=== PATIENT | male | born 1990 | race Caucasian/White ===

== ENCOUNTER 2024-03-11 15:20 | Emergency (ER) | payer BC, SELFPAY ==
[2024-03-11 15:35] VITALS: BP 135/101
--- NOTE | 2024-03-11 15:37 | ED.GENMED ---
ED Provider Triage
<Ovidio Bowman PA-C - Last Filed: 03/11/24 15:39>
-
Patient seen by provider in Triage?: Seen in Triage
Attestation: A medical screening examination has been initiated by a qualified medical provider. Based on the assessment performed at this time, it has been determined that an emergent medical condition may exist and the patient has been informed
that further medical evaluation and possible additional diagnostic testing may be needed.
HPI: 33-year-old male presenting the ER for evaluation of upper abdominal pain, diarrhea and generally feeling unwell. Also notes associated paresthesias to his bilateral hands and shakiness. Had COVID earlier in the month as well as influenza A.
Both his children had both flu A and B. They were still symptomatic as of this past Monday, started to feel better this . Patient without any fevers. Feels nauseous currently but no vomiting. Family history for cardiac disease on both
sides. Patient brought in for quick EKG, labs ordered. Patient otherwise stable
GENERAL: Alert , in no apparent distress
EYE: No visual abnormalities.
NECK: Trachea midline
ENT: No visible abnormalities.
LUNGS: No acute respiratory distress
NEUROLOGICAL: Alert and oriented
SKIN: Skin intact. No visible changes.
MUSCULOSKELETAL: Moving extremities normally
PSYCH: Normal and appropriate interaction.
This is a medical evaluation conducted in person to initiate diagnostic evaluation and provide initial therapeutics. Please see further documentation by the treating clinician.
History of Present Illness
<Ovidio Bowman PA-C - Last Filed: 03/11/24 15:39>
General
Chief Complaint: Abdominal Pain
Time Seen by Provider: 03/11/24 18:11
<Eve Pimentel PA-C - Last Filed: 03/12/24 01:30>
General
Source: patient
Exam Limitations: none
Nursing documentation reviewed up to this point in time: agreed with
History of Present Illness
History of Present Illness:
Patient is a 33 year male presenting to the emergency department with upper abdominal pain associated with nausea and diarrhea. Patient reports initially noticing upper abdominal discomfort yesterday evening before bed although much worse today.
Patient describes a pain in his upper abdomen and somewhat throughout his lower abdomen, as well. He has had relatively constant nausea although no vomiting. He does endorse multiple episodes of diarrhea throughout the day as well. Patient denies
any associated chest pain or shortness of breath. No known fevers although he does feel chilly. Patient denies any associated cough, sore throat, other upper respiratory symptoms.
No known sick contacts. He did have chili for dinner last night at his parents house.
No history of abdominal surgeries.
Review of Systems
<Eve Pimentel PA-C - Last Filed: 03/12/24 01:30>
Review of Systems
Allergies reviewed?: Yes
All Other Systems: ROS reviewed and negative except as documented in HPI and ROS
Phy Exam
<Eve Pimentel PA-C - Last Filed: 03/12/24 01:30>
Physical Exam
Physical Exam:
Vitals: Hypertensive, otherwise stable vital signs. Afebrile
General: Patient is in no apparent distress.
Skin: Warm and dry, no rashes or lesions
Head: Normocephalic, atraumatic
Eyes: Sclera nonicteric. EOMs intact. No nystagmus.
Throat: Protecting airway
Neck: Normal ROM, no cervical spine tenderness, no meningismus
Cardiac: Regular rate and rhythm, no murmurs.
Pulm: Normal respiratory effort, no wheezes, rales, rhonchi heard on exam.
Abdomen: Abdomen soft. Mild diffuse abdominal tenderness. No rebound tenderness or guarding. No rash
Extremities: No evidence of cyanosis or edema. Palpable distal pulses but
Neuro: AAOx3. Grossly intact.
Psychiatric: Normal affect.
Course
<Ovidio Bowman PA-C - Last Filed: 03/11/24 15:39>
Orders/Labs/Results
Orders:
Orders
03/11/24 15:36
Electrocardiogram (*1) Urgent
Reason for Study: Abdominal Pain
EKG- Treatment ONCE
03/11/24 15:47
COVID-19 Antigen Urgent
Source: Nasal Swab
Complete Blood Count/With Diff Urgent
Comprehensive Metabolic Panel Urgent
Lipase Urgent
Troponin I Urgent
Influenza A+B Rapid Molecular Urgent
[place] Source: Nasal Swab
Specimen Description:
03/11/24 18:29
0.9% Sodium Chloride 1000 ml [Nss] 1,000 ml IV BOLUS
Famotidine [Pepcid] 20 mg IV NOW STA
Ketorolac [Toradol] 15 mg IV NOW STA
Ondansetron Injectable [Zofran] 4 mg IV NOW STA
03/11/24 18:55
US Abdomen Complete/Upper Urgent
Comment:
Reason For Exam: Upper abdominal pain, +nausea
03/11/24 20:48
CT Abd/pelvis W Iv Cont Urgent
Comment:
Reason For Exam: Lower abdominal pain, +nausea, +diarrhea
Abnormal Lab Results
03/11/24
15:47
Absolute Neuts (auto) 9.0 H 10^3/uL
(1.4-6.5)
Absolute Lymphs (auto) 0.4 L 10^3/uL
(1.2-3.4)
Neutrophils % 92.4 H %
(42.2-75.2)
Lymphocytes % 3.6 L %
(20.5-51.1)
Glucose 120 H mg/dl
(70-99)
03/11/24 15:47
03/11/24 15:47
Vital Signs
Initial and Last Documented VS:
Initial Vital Signs
Temp Pulse Resp BP Pulse Ox
99.1 F 98 20 135/101 100
03/11/24 15:35 03/11/24 15:35 03/11/24 15:35 03/11/24 15:35 03/11/24 15:35
Last Documented Vital Signs
Temp Pulse Resp BP Pulse Ox
99.1 F 85 16 143/87 98
03/11/24 15:35 03/11/24 22:49 03/11/24 22:49 03/11/24 22:49 03/11/24 22:49
<Eve Pimentel PA-C - Last Filed: 03/12/24 01:30>
Orders/Labs/Results
Orders:
Orders
03/11/24 15:36
Electrocardiogram (*1) Urgent
Reason for Study: Abdominal Pain
EKG- Treatment ONCE
03/11/24 15:47
COVID-19 Antigen Urgent
Source: Nasal Swab
Complete Blood Count/With Diff Urgent
Comprehensive Metabolic Panel Urgent
Lipase Urgent
Troponin I Urgent
Influenza A+B Rapid Molecular Urgent
[place] Source: Nasal Swab
Specimen Description:
03/11/24 18:29
0.9% Sodium Chloride 1000 ml [Nss] 1,000 ml IV BOLUS
Famotidine [Pepcid] 20 mg IV NOW STA
Ketorolac [Toradol] 15 mg IV NOW STA
Ondansetron Injectable [Zofran] 4 mg IV NOW STA
03/11/24 18:55
US Abdomen Complete/Upper Urgent
Comment:
Reason For Exam: Upper abdominal pain, +nausea
03/11/24 20:48
CT Abd/pelvis W Iv Cont Urgent
Comment:
Reason For Exam: Lower abdominal pain, +nausea, +diarrhea
Abnormal Lab Results
03/11/24
15:47
Absolute Neuts (auto) 9.0 H 10^3/uL
(1.4-6.5)
Absolute Lymphs (auto) 0.4 L 10^3/uL
(1.2-3.4)
Neutrophils % 92.4 H %
(42.2-75.2)
Lymphocytes % 3.6 L %
(20.5-51.1)
Glucose 120 H mg/dl
(70-99)
03/11/24 15:47
03/11/24 15:47
Vital Signs
Initial and Last Documented VS:
Initial Vital Signs
Temp Pulse Resp BP Pulse Ox
99.1 F 98 20 135/101 100
03/11/24 15:35 03/11/24 15:35 03/11/24 15:35 03/11/24 15:35 03/11/24 15:35
Last Documented Vital Signs
Temp Pulse Resp BP Pulse Ox
99.1 F 85 16 143/87 98
03/11/24 15:35 03/11/24 22:49 03/11/24 22:49 03/11/24 22:49 03/11/24 22:49
<Rai Ricci MD - Last Filed: 03/11/24 18:58>
Orders/Labs/Results
Orders:
Orders
03/11/24 15:36
Electrocardiogram (*1) Urgent
Reason for Study: Abdominal Pain
EKG- Treatment ONCE
03/11/24 15:47
COVID-19 Antigen Urgent
Source: Nasal Swab
Complete Blood Count/With Diff Urgent
Comprehensive Metabolic Panel Urgent
Lipase Urgent
Troponin I Urgent
Influenza A+B Rapid Molecular Urgent
[place] Source: Nasal Swab
Specimen Description:
03/11/24 18:29
0.9% Sodium Chloride 1000 ml [Nss] 1,000 ml IV BOLUS
Famotidine [Pepcid] 20 mg IV NOW STA
Ketorolac [Toradol] 15 mg IV NOW STA
Ondansetron Injectable [Zofran] 4 mg IV NOW STA
03/11/24 18:55
US Abdomen Complete/Upper Urgent
Comment:
Reason For Exam: Upper abdominal pain, +nausea
03/11/24 20:48
CT Abd/pelvis W Iv Cont Urgent
Comment:
Reason For Exam: Lower abdominal pain, +nausea, +diarrhea
Abnormal Lab Results
03/11/24
15:47
Absolute Neuts (auto) 9.0 H 10^3/uL
(1.4-6.5)
Absolute Lymphs (auto) 0.4 L 10^3/uL
(1.2-3.4)
Neutrophils % 92.4 H %
(42.2-75.2)
Lymphocytes % 3.6 L %
(20.5-51.1)
Glucose 120 H mg/dl
(70-99)
03/11/24 15:47
03/11/24 15:47
Vital Signs
Initial and Last Documented VS:
Initial Vital Signs
Temp Pulse Resp BP Pulse Ox
99.1 F 98 20 135/101 100
03/11/24 15:35 03/11/24 15:35 03/11/24 15:35 03/11/24 15:35 03/11/24 15:35
Last Documented Vital Signs
Temp Pulse Resp BP Pulse Ox
99.1 F 85 16 143/87 98
03/11/24 15:35 03/11/24 22:49 03/11/24 22:49 03/11/24 22:49 03/11/24 22:49
<Eve Pimentel PA-C - Last Filed: 03/12/24 01:30>
MDM/Problems Addressed
Differential Diagnosis Includes:
Not limited to: Viral gastroenteritis, cholecystitis, biliary colic, pancreatitis, appendicitis, diverticulitis,
MDM/Problems Addressed:
32-year-old male presenting with upper abdominal pain associated with nausea and diarrhea. No fevers, chest pain, or shortness of breath. Symptoms with initial onset this morning and constant. Hypertensive, otherwise stable vital signs. He is
afebrile. Physical exam as above. Patient in no apparent distress. Abdomen is soft with somewhat mild diffuse tenderness that rebound tenderness or guarding. Cardio/pulmonary assessment unremarkable. Patient perfusing well. Basic labs
initiated in triage without any clinically significant abnormalities. Viral swabs negative. EKG without acute ischemic changes. Troponin undetectable. Ultimately�suspect likely viral gastroenteritis. Although will check abdominal ultrasound to
rule out gallstones/cholecystitis. Will treat symptoms with PPI, Zofran, Toradol, fluids and reassess
Update: Ultrasound report reviewed. No evidence of gallstones or cholecystitis. On reassessment�patient does have some improvement in symptoms although remains mildly tender in lower abdomen. Shared decision making regarding discharge home with
close monitoring of symptoms for CT scan to rule out other acute intra-abdominal pathology. Radiation risk discussed. Patient however not comfortable with discharge home prior to CT. Will obtain CT scan abdomen/pelvis.
Update: CT report abdomen/pelvis reviewed. No evidence of appendicitis. No other acute abnormalities. Overall�suspect likely viral gastroenteritis. Patient stable for discharge home with p.o. fluids, Zofran, primary care follow-up. Close return
precautions discussed. Patient was made aware of polyps seen on gallbladder and will follow with primary care
Chronic conditions affecting care:
N/A
Acute Exacerbation and/or Progression of Chronic Illness:
N/A
<Eve Pimentel PA-C - Last Filed: 03/12/24 01:30>
*Radiology
Radiology exam reviewed: radiology read reviewed
*Pulse Oximetry
Patient hypoxic: no
*EKG
Interpreted by ED Provider?: Yes
EKG Intrepretation Date: 03/11/24
Interpretation: normal
Comparison EKG: no changes
Heart Rate: 94
Rate: normal
Rhythm: sinus
[place]: normal axis
Interval: normal interval
QRS Pattern: normal QRS
Ischemia: no ischemia
*Manager Auto Interpretation
Rate: Manager Auto- N/A
*Critical Care Note
Total Time (30-74mins, 75-104mins- exclusive of procedures): Not Applicable
ED Attending Note
<Ovidio Bowman PA-C - Last Filed: 03/11/24 15:39>
-
Portions of this chart may have been created with voice recognition software.� Occasional wrong word or��sound alike� substitutions may have occurred due to the inherent limitations of voice recognition software.
<Rai Ricci MD - Last Filed: 03/11/24 18:58>
ED Attending Note
Patient seen and examined by attending physician: Yes
ED Attending Note:
I have seen and evaluated the patient with a [id number]-fo-sfee encounter. I have spoken to the advance practicer provider and involved in the medical history, the physical exam, medical decision making.
Evaluation and management service: agree unless noted differently below.
Results interpretation: agree unless noted differently below.
Focused HPI: 33-year-old male with no reported chronic medical issues presents to the emergency room for evaluation of abdominal pain with nausea/vomiting and diarrhea. Patient reports symptoms started this morning and have been constant since that
time although he did have some transient mild symptoms last night after eating some chili. He reports pain mainly in the epigastrium. Associated with nausea and a few episodes of nonbloody vomiting. He also reports multiple episodes of loose
watery stool. He denies any objective fever although he says he has had some chills this morning. He denies any cough, sore throat, URI symptoms. He denies any other complaints. He denies any prior surgical history.
Physical exam: Awake alert not in distress. Vital signs normal on my assessment. His abdomen is soft, mildly tender in the epigastrium and right upper quadrant with no peritoneal signs and no palpable abdominal masses. His mucous membranes appear
generally moist.
Medical Decision Makin-year-old male presents for evaluation of upper abdominal pain associate with nausea, vomiting, diarrhea. Vitals and exam as above. Suspect likely viral gastroenteritis although symptoms did come after eating some chili
last night�hepatobiliary pathology also consideration. Check CBC, CMP, lipase. Will check swabs for COVID and flu. Check upper abdominal ultrasound. Treat symptomatically and reassess after the above.
Discharge Plan
Departure
Patient Disposition: Home (Routine Discharge)
Date of Disposition: 03/11/24
Time of Disposition: 22:49
Patient with high blood pressure during this ER visit?: Yes
Condition: Good
Covid-19: Not Applicable
Discharge Problem:
Nausea, vomiting and diarrhea, Abdominal pain
Instructions: Viral gastroenteritis in adults, Abdominal Pain, BLOOD PRESSURE
Prescriptions:
New
ondansetron 4 mg tablet,disintegrating
4 mg PO Q8H PRN (Reason: nausea and vomiting) Qty: 7 0RF
Referrals:
Hadley Ochoa DO [Family Provider] -
Activity Restrictions/Additional Instructions:
Return to the emergency department with any persistent fevers, intractable nausea/vomiting, severe abdominal pain, persistent loss of appetite, signs of severe dehydration, chest pain/shortness of breath, worsening in current symptoms, or any other
concerns
-As discussed that your ultrasound of your abdomen did show a few gallbladder polyps. These likely will not require any further follow-up imaging although please bring this to your primary care provider's attention.
-Prescription for Zofran has been sent to your pharmacy. You can take this up to every 8 hours as needed for persistent nausea/vomiting. You can try OTC pantoprazole/omeprazole for the next few weeks to improve symptoms.
-Is important stay well-hydrated. I recommend a bland diet and slowly advance as tolerated.
-Follow-up with your primary care as needed for further evaluation/management and to ensure that symptoms are improved
Monitor your symptoms closely return to the emergency department any acute worsening/new symptoms or any other concerns
Interventions
Interventions:
*Risk Screen - Suicide Last Done: 03/11/24 15:35
*General Assessment Last Done: 03/11/24 18:28
*Neglect/Abuse Screening Last Done: 03/11/24 18:29
ED- Fall Risk Assessment Last Done: 03/11/24 18:31
*ED COVID-19 Vaccine History Last Done: 03/11/24 18:28
*Nursing Disposition Last Done: 03/11/24 22:53
II-Ibeejy-Pogtvpgvtb Assessment Last Done: 03/11/24 18:31
Discharge Date and Time
Discharge Date/Time: 03/11/24 22:59
Print Language: CROATIAN
[2024-03-11 15:57] LABS: % Basophils 0.2 % (0-2); % Eosinophils 0.7 % (0-6); % Immature Granulocytes 0.2 % (0-0.5); % Lymphocytes 3.6 % (20.5-51.1); % Monocytes 2.9 % (1.7-9.3); % Neutrophils 92.4 % (42.2-75.2); Absolute Eosinophils 0.1 10^3/uL (0-0.7); Absolute Lymphocytes 0.4 10^3/uL (1.2-3.4); Absolute Monocytes 0.3 10^3/uL (0.1-0.6); Hematocrit 43.5 % (39.0-52.0); Hemoglobin 15.5 g/dL (13.0-18.0); Mean Corp Hgb Conc. 35.6 g/dL (33.0-37.0); Mean Corpuscular Hgb 30.1 pg (27.0-31.0); Mean Corpuscular Volume 84.5 fL (80.0-94.0); Mean Platelet Volume 9.7 fL (7.4-10.4); Nucleated Red Blood Cells % 0 % (-); Platelet Count 327 10^3/uL (130-400); Red Blood Cell Count 5.15 10^6/uL (4.70-6.10); Red Cell Dist. Width 12.6 % (11.5-14.5); White Blood Cell Count 9.7 10^3/uL (4.8-10.8)
[2024-03-11 16:12] LABS: ALT (SGPT) 28 U/L (0-50); AST (SGOT) 24 U/L (17-59); Albumin 4.7 g/dl (3.5-5.0); Alkaline Phosphatase 89 U/L (38-126); Blood Urea Nitrogen 16 mg/dl (9-20); Calcium 9.5 mg/dl (8.4-10.2); Carbon Dioxide 23 mmol/L (22-30); Chloride 103 mmol/L (98-107); Glucose 120 mg/dl (70-99); Lipase 79 U/L (23-300); Potassium 3.7 mmol/L (3.5-5.1); Sodium 137 mmol/L (135-145); Total Bilirubin 1.1 mg/dl (0.2-1.3); Total Protein 6.9 g/dl (6.3-8.2); eGFR > 60.00
[2024-03-11 16:17] LABS: COVID-19 Antigen Negative (Negative)
[2024-03-11 16:21] LABS: Troponin I < 0.012 ng/ml
[2024-03-11 18:28] VITALS: BMI 26.5
[2024-03-11 18:34] VITALS: BP 145/96
--- NOTE | 2024-03-11 18:40 | EDRN ---
Michelle BREAUX in room w/ pt.
[2024-03-11] MEDS: NSS 1000 IV (18:46)
--- NOTE | 2024-03-11 18:52 | EDRN ---
Dr. Ricci in room w /pt.
[2024-03-11] MEDS: PEPCID 20 MG IV (18:53)
[2024-03-11] MEDS: ZOFRAN 4 MG IV (18:53)
[2024-03-11] MEDS: TORADOL 15 MG IV (18:53)
[2024-03-11 20:32] VITALS: BP 147/89
[2024-03-11 22:49] VITALS: BP 143/87
== END 2024-03-11 22:59 | disposition home or self-care (01) ==
LOC: EMR 15:20
PROVIDERS: Physician Assistant Medical; EMERGENCY PHYSICIAN Emergency Medicine; FAMILY PHYSICIAN Internal Medicine
DX: R11.2 Nausea with vomiting, unspecified (principal); R19.7 Diarrhea, unspecified; R10.10 Upper abdominal pain, unspecified; R03.0 Elevated blood-pressure reading, without diagnosis of hypertension; Z11.52 Encounter for screening for COVID-19
CPT/HCPCS: 99285; 96374; 96375 ×2; 96361; 74177; 76700; 80053; 83690; 84484; 85025; 87502; 87811; 93005; Q9967